=== PATIENT | female | born 1955 | race Caucasian/White ===

== ENCOUNTER 2022-12-04 07:23 | Outpatient (CLI) | payer MEDICARE, SELFPAY ==
--- NOTE | ~2022-12-04 | MR_ITS ---
EXAMINATION: MR abdomen wo/w con INDICATION: Pancreatic lesion, right-sided abdominal pain TECHNIQUE: Coronal SSFSE ARC, WATER:coronal LAVA-FLEX, Coronal 2D FIESTA FatSat, Axial SSFSE BH ARC, axial and coronal 3D DualEcho BH, Axial SSFSE-IR, Axial DWI b=500, Axial 2D FIESTA FatSat, pre and dy namic postcontrast Axial LAVA ARC, postcontrast Coronal In and Opposed phase LAVA FLEX COMPARISON: None available CONTRAST: Multihance, 20 cc FINDINGS: The liver, adrenal glands, and kidneys are normal. Changes of cholecystectomy are noted. Mu ltiple tiny hypointense lesions of the spleen could reflect Gam[place]-Tommy bodies. There is a 2.7 x 1.6 cm multicystic lesion in the tail of the pancreas with multiple subcentimeter cysts. Communication wi th the main pancreatic duct is indeterminate. The remainder of the pancreas is unremarkable. The panc reatic duct is normal in caliber. There are no pathologically enlarged abdominal lymph nodes. There a re no dilated loops of bowel. IMPRESSION: 1. Multicystic lesion in the tail of the pancreas. The differential diagnosis includes pseudocyst, in traductal papillary mucinous neoplasm (IPMN), mucinous cystic neoplasm (MCN), and the less common ser ous cystadenoma and neuroendocrine tumor. Correlate for history of pancreatitis. Follow-up contrast-e nhanced MRI or pancreas protocol CT in six months is recommended. Correlation with any prior imaging would be helpful. Reviewed, dictated and finalized at location B. IMPRESSION: 1. Multicystic lesion in the tail of the pancreas. The differential diagnosis i ncludes pseudocyst, intraductal papillary mucinous neoplasm (IPMN), mucinous cy stic neoplasm (MCN), and the less common serous cystadenoma and neuroendocrine tumor. Correlate for history of pancreatitis. Follow-up contrast-enhanced MRI o r pancreas protocol CT in six months is recommended. Correlation with any prior imaging would be helpful.
== END 2022-12-04 07:24 | disposition home or self-care (01) ==
LOC: CHSIMG 07:33
PROVIDERS: PCP Family Medicine; Visit Provider Nurse Practitioner
DX: K86.9 Disease of pancreas, unspecified (principal)
CPT/HCPCS: 74183; A9577